=== PATIENT | female | born 1970 | race Caucasian/White ===

== ENCOUNTER → 2017-03-25 | Outpatient (CLI) | payer OTHER | END | disposition home or self-care (01) | LOC: MRI 03-19 11:00 | DX: M75.102 Unspecified rotator cuff tear or rupture of left shoulder, not specified as traumatic (principal); M75.42 Impingement syndrome of left shoulder ==

== ENCOUNTER → 2018-05-22 | Outpatient (CLI) | payer OTHER ==
--- NOTE | ~2018-05-22 | EKG ---
[place], [place] ELECTROCARDIOGRAM REPORT NAME: ANGELA SMITH UNIT #: [id number] ROOM: DOCTOR: KHALIF DRAFT REPORT BIRTHDATE: [birth year] [facility] Test Date: 2018-05-22 Test Time: 09:06:34 Pat Name: ANGELA SMITH Department: Room: Gender: F [employer]ch[employer] Flow Team Member: Mendy Adorno : 1970 Requested By: KAYLA MATTSON Order Number: [id number] Reading MD: Saul Cho MD Measurements Intervals [place] Rate: 73 P: 25 [place]: 147 QRS: 98 QRSD: 80 T: 62 QT: 366 QTc: 404 Interpretive Statements Sinus rhythm Borderline right axis deviation Low voltage, precordial leads ST elev, probable normal early repol pattern Electronically Signed On 05-22-2018 18:28:05 PST by Saul Cho MD CM:EKGRPT:ELECTROCARDIOGRAM REPORT 5 [id number] KAYLA CUADRA DRAFT REPORT KAYLA MATTSON
[2018-05-22 09:29] LABS: HEMATOCRIT 45.4 % (37.0-47.0); HEMOGLOBIN 15.3 g/dl (12.0-16.0); MEAN CELL VOLUME 88.2 fl (81.0-99.0); MEAN CORPUSCULAR HGB 29.7 pg (27.0-31.0); MEAN CORPUSCULAR HGB CONC 33.7 g/dl (33.0-37.0); RED BLOOD COUNT 5.15 10*6/uL (4.10-5.10); RED CELL DISTRI WIDTH 13.1 % (0-14.5); WHITE BLOOD COUNT 11.7 10*3/uL (4.8-10.8)
[2018-05-22 09:53] LABS: ALBUMIN 3.8 gm/dl (3.1-4.5); BUN 11 mg/dl (7-24); CHLORIDE 109 mmol/L (98-107); CHOLESTEROL 278 mg/dL (<200); CREATININE 1.01 mg/dL (0.55-1.02); POTASSIUM 4.2 mmol/L (3.5-5.1); SGOT/AST 10 IU/L (3-35); SGPT/ALT 16 U/L (12-78); SODIUM 143 mmol/L (136-145)
[2018-05-22 10:04] LABS: ALKALINE PHOSPHATASE 87 U/L (45-117); HDL CHOLESTEROL 36 mg/dl (40-60); TOTAL PROTEIN 7.4 gm/dL (6.4-8.2); TRIGLYCERIDES 472 mg/dl (<150)
== END | disposition home or self-care (01) ==
LOC: LAB 08:43
PROVIDERS: Registered Nurse Flight
DX: K43.9 Ventral hernia without obstruction or gangrene (principal); E78.00 Pure hypercholesterolemia, unspecified; F34.1 Dysthymic disorder; Z72.0 Tobacco use

== ENCOUNTER → 2018-07-02 | Outpatient (CLI) | payer OTHER | END | disposition home or self-care (01) | LOC: CT 01:39 | DX: R10.10 Upper abdominal pain, unspecified (principal); R11.0 Nausea; R19.7 Diarrhea, unspecified; Z90.710 Acquired absence of both cervix and uterus ==

== ENCOUNTER 2019-11-16 17:12 | Emergency (ER) | payer OTHER ==
[~2019-11-16] VITALS: Ht 152.4 cm; Wt 61.2 kg
== END 2019-11-16 20:25 | disposition home or self-care (01) ==
LOC: ED 17:12
DX: M79.674 Pain in right toe(s) (principal); W22.8XXA Striking against or struck by other objects, initial encounter; Y93.89 Activity, other specified; Y92.89 Other specified places as the place of occurrence of the external cause; Y99.8 Other external cause status

== ENCOUNTER 2022-01-07 20:06 | Emergency (ER) | payer OTHER ==
[~2022-01-07] VITALS: Ht 152.4 cm; Wt 68.0 kg
[2022-01-07 23:25] LABS: BASO % 0.2 % (0.0-1.0); EOS # 0.1 10*3/uL (0.0-0.4); EOS % 0.8 % (1.0-4.0); MEAN CELL VOLUME 88.4 fl (81.0-99.0); MEAN CORPUSCULAR HGB 29.9 pg (27.0-31.0); MEAN CORPUSCULAR HGB CONC 33.8 g/dl (33.0-37.0); MEAN PLATELET VOLUME 8.9 fl (9.6-12.3); MONO # 0.6 10*3/uL (0.1-1.0); MONO % 8.6 % (3.0-9.0); NEUT % 45.2 % (47.0-73.0); PLATELET COUNT AUTOMATED 321 10*3/uL (130-400); RED BLOOD COUNT 5.09 10*6/uL (4.10-5.10); RED CELL DISTRI WIDTH 13.7 % (0-14.5); WHITE BLOOD COUNT 6.6 10*3/uL (4.8-10.8)
[2022-01-07 23:36] LABS: BUN 9 mg/dl (7-24); CHLORIDE 104 mmol/L (98-107); CREATININE 0.77 mg/dL (0.55-1.02); POTASSIUM 3.4 mmol/L (3.5-5.1); SODIUM 138 mmol/L (136-145)
== END 2022-01-08 01:14 | disposition home or self-care (01) ==
LOC: ED 20:06
PROVIDERS: Nurse Practitioner Family
DX: J10.1 Influenza due to other identified influenza virus with other respiratory manifestations (principal); Z20.822 Contact with and (suspected) exposure to COVID-19; F17.200 Nicotine dependence, unspecified, uncomplicated; Z90.711 Acquired absence of uterus with remaining cervical stump

== ENCOUNTER 2023-12-13 19:26 | Emergency (ER) | payer OTHER ==
[~2023-12-13] VITALS: Ht 152.4 cm; Wt 63.5 kg
[2023-12-13] MEDS ORDERED: PERCOCET 10-321 EACH PO (19:49)
[2023-12-13 20:47] LABS: URINE AMPHETAMINES Negative (1000ng/ml); URINE BARBITURATES Negative (200ng/ml); URINE BENZODIAZEPINES Negative (200ng/ml); URINE CANNABINOIDS (THC) Positive (50ng/ml); URINE COCAINE Negative (300ng/ml); URINE METHADONE Negative (300ng/ml); URINE OPIATES Negative (300ng/ml); URINE PHENCYCLIDINE Negative (25ng/ml)
[2023-12-13] MEDS ORDERED: Acetaminophen/Oxycodone 5 MG/325 MG TABLET PO ONE (20:55)
== END 2023-12-13 23:22 | disposition home or self-care (01) ==
LOC: ED 19:26
PROVIDERS: Internal Medicine
DX: M54.2 Cervicalgia (principal); M54.50 Low back pain, unspecified; Z79.899 Other long term (current) drug therapy; Z90.710 Acquired absence of both cervix and uterus; W01.0XXA Fall on same level from slipping, tripping and stumbling without subsequent striking against object, initial encounter; Y93.89 Activity, other specified; Y92.89 Other specified places as the place of occurrence of the external cause; Y99.8 Other external cause status

== ENCOUNTER 2024-05-03 21:06 | Emergency (ER) | payer OTHER ==
[~2024-05-03] VITALS: Ht 160 cm; Wt 81.6 kg
[~2024-05-03 21:06] MED LIST: PERCOCET 10-321 EACH PO
[2024-05-03] MEDS ORDERED: PREDNISONE50 MG PO (21:21)
[2024-05-03] MEDS ORDERED: methylPREDNISolone sod succ 125 MG VIAL IM ONE (21:25)
== END 2024-05-03 22:00 | disposition home or self-care (01) ==
LOC: ED 21:06
DX: S76.012A Strain of muscle, fascia and tendon of left hip, initial encounter (principal); K21.9 Gastro-esophageal reflux disease without esophagitis; Z90.711 Acquired absence of uterus with remaining cervical stump; W19.XXXA Unspecified fall, initial encounter; Y93.89 Activity, other specified; Y92.89 Other specified places as the place of occurrence of the external cause; Y99.8 Other external cause status

== ENCOUNTER 2024-05-21 05:12 | Emergency (ER) | payer SELFPAY ==
[~2024-05-21 05:12] MED LIST changes: +PREDNISONE50 MG PO
[2024-05-21] MEDS ORDERED: Naloxone Hydrochloride 2 MG/2 ML SYR NAS ONE ×2 (05:20)
== END 2024-05-21 05:32 | disposition left against medical advice (07) ==
LOC: ED 05:12
DX: T50.991A Poisoning by other drugs, medicaments and biological substances, accidental (unintentional), initial encounter (principal); R40.4 Transient alteration of awareness; Z53.29 Procedure and treatment not carried out because of patient's decision for other reasons; K21.9 Gastro-esophageal reflux disease without esophagitis; Z90.711 Acquired absence of uterus with remaining cervical stump; Z98.890 Other specified postprocedural states; Y92.89 Other specified places as the place of occurrence of the external cause